=== PATIENT | male | born 1995 | race Caucasian/White ===

== ENCOUNTER → 2019-03-12 | Outpatient (CLI) | payer OTHER | LOC: MRI 09:24 | DX: M51.16 Intervertebral disc disorders with radiculopathy, lumbar region (principal); M25.512 Pain in left shoulder; R93.7 Abnormal findings on diagnostic imaging of other parts of musculoskeletal system; M51.27 Other intervertebral disc displacement, lumbosacral region; M25.78 Osteophyte, vertebrae ==